=== PATIENT | male | born 1970 | race Caucasian/White ===

== ENCOUNTER 2023-08-21 12:28 | Day surgery (SDC) | payer MEDICARE ==
[2023-08-21] MEDS ORDERED: Sodium Chloride 0.9(Preservative Free) 10 ML IJ ONE (12:29)
[2023-08-21] MEDS ORDERED: LIDOCAINE HCL 1% 50 MG/5 ML VL PF IJ ONE (12:29)
[2023-08-21] MEDS ORDERED: Depo-Medrol 40 MG/ML IM ONE (12:29)
[2023-08-21] MEDS ORDERED: Sodium Chloride 0.9% 1000 ML 1,000 ML ONE ×2 (14:35→17:05)
[2023-08-21] MEDS ORDERED: Zofran 4 MG/2 ML VIAL ONE (15:42)
[2023-08-21] MEDS ORDERED: SUBLIMAZE 100 MCG/2 ML ONE (15:55)
--- NOTE | 2023-08-21 17:02 | XRAY ---
Indication: Left L4-S1 transforaminal CAROLYNN. Intraoperative fluoroscopy provided for 38 seconds. 8 digital spot images submitted for interpretation demonstrates posterior needle tips projecting over the expected left L4 and L5 nerve roots. Small amount of contrast injected for needle tip placement. Correlate with intraoperative findings/report.
--- NOTE | 2023-08-21 17:04 | XRAY ---
38 seconds of fluoroscopy was used in surgery for a left L4-S1 transforaminal CAROLYNN.
== END 2023-08-21 16:30 | disposition home or self-care (01) ==
LOC: SDC-PAIN 12:28
PROVIDERS: ATTEND Psychiatry & Neurology Pain Medicine
DX: M54.16 Radiculopathy, lumbar region (principal)
CPT/HCPCS: 64483; 64484; 72100; 77003; J1030; J2001; J2405; J3010; Q9966